=== PATIENT | male | born 1965 | race Caucasian/White ===

== ENCOUNTER 2016-06-17 15:35 | Emergency (ER) | payer OTHER ==
[2016-06-17 16:55] LABS: BASO % 0.3 % (0.2-1.2); EOS # 0.3 10_X3_uL (0.0-0.5); EOS % 2.9 % (0.8-7.0); GRAN # 7.6 10_X3_uL (1.8-5.4); GRAN % 72.2 % (34.0-67.9); HEMATOCRIT 50.5 % (40-51); HEMOGLOBIN 17.2 g/dL (13.7-17.5); LYMPH # 1.8 10_X3_uL (1.3-3.6); LYMPH % 17.3 % (21.8-53.1); MEAN CORPUSCULAR HEMOGLOBIN 32.1 pg (27.0-33.0); MEAN CORPUSCULAR HGB CONC 34.1 g/dL (32.0-36.0); MEAN CORPUSCULAR VOLUME 94.4 fL (79-92); MONO # 0.8 10_X3_uL (0.3-0.8); MONO % 7.3 % (5.3-12.2); PLATELET COUNT 303 x10_3/uL (163-337); RED BLOOD COUNT 5.35 x10_6/uL (4.6-6.1); RED CELL DISTRIBUTION WIDTH 13.6 % (11.6-14.4); WHITE BLOOD COUNT 10.5 x10_3/uL (4.2-9.1)
[2016-06-17 17:04] LABS: ALBUMIN 4.3 gm/dL (3.4-5.0); ALKALINE PHOSPHATASE 77 U/L (50-136); ALT/SGPT 13 U/L (7.53-40.17); AMYLASE 73 U/L (15.62-74.58); AST/SGOT 18 U/L (6.66-35.34); BILIRUBIN,TOTAL 0.54 mg/dL (0.0-1.0); BLOOD UREA NITROGEN 15 mg/dL (7-18); CALCIUM 9.1 mg/dL (8.7-10.7); CARBON DIOXIDE 26 mmol/L (21-32); CREATININE 0.9 mg/dL (0.6-1.3); GLUCOSE,RANDOM 97 mg/dL (70-99); LIPASE 27 U/L (6.75-60.75); POTASSIUM 4.3 mmol/L (3.5-5.1); SODIUM 138 mmol/L (136-145); TOTAL PROTEIN 6.7 gm/dL (6.4-8.2)
== END 2016-06-17 18:43 | disposition home or self-care (01) ==
LOC: ER 15:35
PROVIDERS: General Practice
DX: J06.9 Acute upper respiratory infection, unspecified (principal); R11.0 Nausea; J02.9 Acute pharyngitis, unspecified; F17.210 Nicotine dependence, cigarettes, uncomplicated
CPT/HCPCS: 36415; 80053; 82150; 83690; 85025; 87070; 87400; 87880; 99283

== ENCOUNTER 2016-09-28 10:58 | Emergency (ER) | payer OTHER | END 2016-09-28 13:57 | disposition short-term general hospital (02) | LOC: ER 10:58 | DX: S12.300A Unspecified displaced fracture of fourth cervical vertebra, initial encounter for closed fracture (principal); X58.XXXA Exposure to other specified factors, initial encounter; M50.322 Other cervical disc degeneration at C5-C6 level; M50.323 Other cervical disc degeneration at C6-C7 level; M51.36 Other intervertebral disc degeneration, lumbar region; E04.1 Nontoxic single thyroid nodule; M54.2 Cervicalgia; M54.5 Low back pain; F17.210 Nicotine dependence, cigarettes, uncomplicated; Z79.899 Other long term (current) drug therapy | CPT/HCPCS: 72125; 72128; 72131; 99070; 99283-25 ==